=== PATIENT | female | born 1960 | race Caucasian/White ===

== ENCOUNTER 2021-07-26 01:26 | Emergency (ER) | payer BC ==
[2021-07-26] MEDS ORDERED: Tetracaine 0.5% PF 4 ML BOT ONE (03:20)
[2021-07-26] MEDS ORDERED: Fluorescein Opthalmic Strip ONE (03:20)
[2021-07-26 04:31] LABS: SARS-CoV-2 NAA Rapid Test DETECTED (NotDetected)
== END 2021-07-26 04:43 | disposition short-term general hospital (02) ==
LOC: MADERS 01:26
DX: S02.832A Fracture of medial orbital wall, left side, initial encounter for closed fracture (principal); U07.1 COVID-19; H11.32 Conjunctival hemorrhage, left eye; E03.9 Hypothyroidism, unspecified; E78.5 Hyperlipidemia, unspecified; I10 Essential (primary) hypertension; W18.30XA Fall on same level, unspecified, initial encounter; Y92.091 Bathroom in other non-institutional residence as the place of occurrence of the external cause
CPT/HCPCS: 70450; 70486; 72125; U0002